=== PATIENT | female | born 1975 | race Two or more races ===

== ENCOUNTER 2020-02-12 05:49 | Emergency (ER) | payer MEDICAID ==
[~2020-02-12] VITALS: Ht 167.6 cm; Wt 109.1 kg
[2020-02-12] MEDS ORDERED: SODIUM CHLORIDE FLUSH 10ML SYR IVF ONE (06:00)
--- NOTE | 2020-02-12 06:26 | NUR ---
PT INTERMITTENLY AOX4 AND COOPERATIVE OR TEARFUL AND CONFUSED. FAMILY AT BS REORIENTING AND CALMING PT. NPA IN PLACED LEAF STAMPER, 2L NC IN PLACE. UA ATTEMPTED, PT DID NOT TOLERATE STRAIGHT CATH AND UNABLE TO STAND AT THIS TIME. LABS DRAWN, IV PLACED LEAF STAMPER. PT CONNECTED TO ALL MONITORING, CALL LIGHT WITHIN REACH, ALL SAFETY MEASURES IN PLACE.
[2020-02-12 06:37] LABS: BASOPHILS # (AUTO) 0.03 x10^3/uL (0-0.1); BASOPHILS % (AUTO) 1 % (0-1); EOSINOPHILS # (AUTO) 0.31 x10^3/uL (0-0.4); EOSINOPHILS % (AUTO) 5 % (1-7); LYMPHOCYTES # (AUTO) 2.01 x10^3/uL (1-3.4); LYMPHOCYTES % (AUTO) 32 % (22-44); MD NO; MEAN CORPUSCULAR HEMOGLOBIN 28.7 pg (27.0-34.8); MEAN CORPUSCULAR HGB CONC 33.4 g/dL (32.4-35.8); MEAN CORPUSCULAR VOLUME 85.9 fL (80-100); MEAN PLATELET VOLUME 8.5 fL (7.4-10.4); MONOCYTES # (AUTO) 0.38 x10^3/uL (0.2-0.8); MONOCYTES % (AUTO) 6 % (2-9); NEUTROPHILS # (AUTO) 3.49 x10^3/uL (1.8-6.8); NEUTROPHILS % (AUTO) 56 % (42-75); PLATELET COUNT 334 x10^3/uL (130-400); RED BLOOD COUNT 4.57 x10^6/uL (3.82-5.3); RED CELL DISTRIBUTION WIDTH 13.5 % (9.6-15.2)
[2020-02-12 06:46] LABS: ANION GAP 7 mmol/L (5-15); CALCIUM 8.5 mg/dL (8.5-10.1); CHLORIDE 117 mmol/L (98-107)
[2020-02-12 06:47] LABS: ALANINE AMINOTRANSFERASE 169 U/L (12-78); ALBUMIN 3.5 g/dL (3.4-5.0)
--- NOTE | 2020-02-12 06:49 | NUR ---
[employer] USED [id number] TO CLARIFY INFORMATION FROM PATIENT. 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
[2020-02-12 06:51] LABS: ALKALINE PHOSPHATASE 141 U/L (45-117); BILIRUBIN,TOTAL 0.4 mg/dL (0.2-1.0); TOTAL PROTEIN 7.7 g/dL (6.4-8.2)
--- NOTE | 2020-02-12 06:52 | NUR ---
REPORT TO JOHNY STONER.
--- NOTE | 2020-02-12 06:55 | NUR ---
BEDSIDE SBAR RPT AND ASSUMED PTCARE.
--- NOTE | 2020-02-12 07:26 | NUR ---
RIGHT NARE NPA REMOVED. PT TOLLERATED WELL
--- NOTE | 2020-02-12 07:44 | NUR ---
PT OOB AND AMBULATED TO BATHROOM WITH RN ESCORT, DIZZINESS CONTINUES BUT PT RPTS "IS BETTER". PT RTD TO ROOM W/O INCIDENT. URINE SENT TO LAB. VSS. CALL LIGHT W/I REACH AND AT BEDSIDE.
[2020-02-12 08:06] LABS: AMPHETAMINE SCREEN, URINE Negative (Negative); BARBITURATE SCREEN, URINE Negative (Negative); BENZODIAZEPINE SCREEN, URINE Negative (Negative); CANNABINOID SCREEN, URINE Negative (Negative); COCAINE SCREEN, URINE Negative (Negative); METHADONE SCREEN, URINE Negative (Negative); OPIATE SCREEN, URINE Negative (Negative)
[2020-02-12 09:17] VITALS: BP 114/67
--- NOTE | 2020-02-12 09:18 | NUR ---
Patient/Caregiver given discharge instructions and they have confirmed that they understand the instructions. Patient ambulatory with steady gait.
== END 2020-02-12 09:19 | disposition home or self-care (01) ==
LOC: ED 07:59
DX: F10.120 Alcohol abuse with intoxication, uncomplicated (principal); R94.5 Abnormal results of liver function studies; R94.31 Abnormal electrocardiogram [ECG] [EKG]; Y90.9 Presence of alcohol in blood, level not specified
CPT/HCPCS: 36415; 80053; 80307; 84703; 85025; 93005; 99284